=== PATIENT | female | born 1970 | race African-American/Black ===

== ENCOUNTER 2022-08-09 22:03 | Emergency (ER) | payer OTHER ==
[~2022-08-09] VITALS: Ht 180.3 cm; Wt 84.4 kg
[~2022-08-09 22:03] MED LIST: CORTISPORIN EAR10 M2 OT; ZANTAC150 MG PO
== END 2022-08-10 00:17 | disposition home or self-care (01) ==
LOC: EMR PED 22:03 → ER 22:08
DX: M94.0 Chondrocostal junction syndrome [Tietze] (principal); R53.1 Weakness; Z20.822 Contact with and (suspected) exposure to COVID-19

== ENCOUNTER → 2022-09-07 | Outpatient (CLI) | payer OTHER | END | disposition home or self-care (01) | LOC: MAMO-SONO 10:57 | PROVIDERS: ATTEND Surgery | DX: C50.412 Malignant neoplasm of upper-outer quadrant of left female breast (principal); N60.11 Diffuse cystic mastopathy of right breast; N60.12 Diffuse cystic mastopathy of left breast ==

== ENCOUNTER → 2022-10-12 07:14 | Outpatient (CLI) | payer OTHER | END | disposition home or self-care (01) | LOC: LAB 07:14 | PROVIDERS: ATTEND Surgery | DX: D64.9 Anemia, unspecified (principal); I10 Essential (primary) hypertension; D68.9 Coagulation defect, unspecified; N39.0 Urinary tract infection, site not specified; E11.8 Type 2 diabetes mellitus with unspecified complications; E04.1 Nontoxic single thyroid nodule; E78.2 Mixed hyperlipidemia ==

== ENCOUNTER 2022-10-19 06:48 | Day surgery (SDC) | payer OTHER ==
[~2022-10-19] VITALS: Ht 180.3 cm; Wt 88.0 kg
== END 2022-10-19 20:40 | disposition home or self-care (01) ==
LOC: CIR.AMB 06:48
PROVIDERS: ATTEND Surgery
DX: C50.212 Malignant neoplasm of upper-inner quadrant of left female breast (principal); N62 Hypertrophy of breast; N64.81 Ptosis of breast; N64.89 Other specified disorders of breast; Z20.822 Contact with and (suspected) exposure to COVID-19; Z88.2 Allergy status to sulfonamides; Z88.1 Allergy status to other antibiotic agents

== ENCOUNTER 2022-12-02 10:16 | Emergency (ER) | payer OTHER ==
[~2022-12-02] VITALS: Ht 180.3 cm; Wt 81.6 kg
== END 2022-12-02 13:31 | disposition home or self-care (01) ==
LOC: ER 10:16
DX: N61.0 Mastitis without abscess (principal); Z20.822 Contact with and (suspected) exposure to COVID-19; I10 Essential (primary) hypertension; Z88.2 Allergy status to sulfonamides; Z87.898 Personal history of other specified conditions

== ENCOUNTER 2024-01-13 08:29 | Emergency (ER) | payer OTHER ==
[~2024-01-13] VITALS: Ht 180.3 cm; Wt 81.6 kg
[2024-01-13] MEDS ORDERED: [UNRECOGNIZED DRUG - OTHER] (08:38)
[2024-01-13] MEDS ORDERED: FAMOTIDINE/PF 20 MG in 0.9 % SODIUM CHLORIDE 8 ML IV PUSH STA (08:59)
[2024-01-13] MEDS ORDERED: 0.9 % SODIUM CHLORIDE 1,000 ML IV SCH (09:00)
[2024-01-13] MEDS ORDERED: ONDANSETRON HCL 2 MG/ML VIAL IV ONE (09:00)
[2024-01-13] MEDS ORDERED: ONDANSETRON HCL 2 MG/ML VIAL ONE (09:04)
[2024-01-13] MEDS ORDERED: FAMOtidine 200mg/20ml VIAL ONE (09:04)
[2024-01-13] MEDS ORDERED: KETOROLAC TROMETHAMINE 30 MG VIAL ONE (09:04)
[2024-01-13] MEDS ORDERED: TAMOXIFEN CITRA10 MG (09:13)
[2024-01-13] MEDS ORDERED: KETOROLAC TROMETHAMINE 30 MG VIAL IV ONE (09:15)
[2024-01-13 09:36] LABS: HEMATOCRIT 39.6 % (36.0-45.00); HEMOGLOBIN 13.1 g/dL (12.0-15.00); MEAN CELL VOLUME 83.4 fL (80.00-100.00); MEAN CORPUSCULAR HEMOGLOBIN 27.5 pg (27.00-32.0); PLATELET COUNT 219 K/uL (150-450); RED BLOOD COUNT 4.74 M/uL (4.00-6.00); RED CELL DISTRIBUTION WIDTH 12.5 % (11.5-14.5)
[2024-01-13 10:11] LABS: ALBUMIN 3.6 gm/dL (3.4-5.0); BILIRUBIN TOTAL 0.65 mg/dL (0.3-1.2); CALCIUM 8.6 mg/dL (8.5-10.1); CREATININE SERUM 0.8 mg/dL (0.55-1.02); GFR 74.47; GLOBULINA 4.7 G/DL (2.4-3.5); POTASSIUM 3.88 mEq/L (3.5-5.1); TOTAL PROTEIN 8.3 gm/dL (6.4-8.2)
[2024-01-13] MEDS ORDERED: METOCLOPRAMIDE HCL 10 MG in DEXTROSE 5 % IN WATER 50 ML IV ONE (12:30)
[2024-01-13] MEDS ORDERED: METOCLOPRAMIDE HCL 5 MG/ML VIAL ONE (12:38)
[2024-01-13] MEDS ORDERED: DIPHENOXYLATE HCL/ATROPINE 1 UDTAB TABLET PO ONE (13:30)
[2024-01-13] MEDS ORDERED: PEPCID AC20 MG PO (14:37)
[2024-01-13] MEDS ORDERED: ONDANSETRON ODT8 MG PO (14:37)
[2024-01-13] MEDS ORDERED: INTESTINEX680 M1 PO (14:37)
[2024-01-13] MEDS ORDERED: LEVSIN/SL0.125 MG SL (14:39)
== END 2024-01-13 14:58 | disposition home or self-care (01) ==
LOC: ER 08:30
PROVIDERS: General Practice
DX: K52.9 Noninfective gastroenteritis and colitis, unspecified (principal); I88.0 Nonspecific mesenteric lymphadenitis; Z88.2 Allergy status to sulfonamides; Z85.3 Personal history of malignant neoplasm of breast; Z20.822 Contact with and (suspected) exposure to COVID-19

== ENCOUNTER 2025-04-13 06:15 | Emergency (ER) | payer OTHER ==
[~2025-04-13] VITALS: Ht 180.3 cm; Wt 83.5 kg
[~2025-04-13 06:15] MED LIST changes: +INTESTINEX680 M1 PO; +LEVSIN/SL0.125 MG SL; +ONDANSETRON ODT8 MG PO; +PEPCID AC20 MG PO; +TAMOXIFEN CITRA10 MG; +[UNRECOGNIZED DRUG - OTHER]
[2025-04-13 06:34] VITALS: BP 141/70; O2SAT 98
[2025-04-13] MEDS ORDERED: DEXAMETHASONE SODIUM PHOSPHATE 4 MG/ML VIAL IM STA (07:16)
[2025-04-13] MEDS ORDERED: ACETAMINOPHEN 500 MG GEL..CAP PO STA (07:17)
[2025-04-13] MEDS ORDERED: ACETAMINOPHEN 500 MG GEL..CAP PO ONE (07:21)
[2025-04-13] MEDS ORDERED: DEXAMETHASONE SODIUM PHOSPHATE 4 MG/ML VIAL ONE (07:22)
[2025-04-13 08:06] LABS: BASO % 0.6 % (0.1-1.2); EOS # 0.46 (0.04-0.54); EOS % 8.6 % (0.7-7.0); LYMPH # 1.55 (1.18-3.74); LYMPH % 29.0 % (19.3-53.1); MEAN PLATELET VOLUME 8.80 fl (9.4-12.4); MONO # 0.33 (0.24-0.82); MONO % 6.2 % (4.7-12.5); NEUT # 2.97 (1.56-6.13); NEUT % 55.4 % (34.0-71.1); RED CELL DISTRIBUTION WIDTH 11.8 % (11.6-14.4)
[2025-04-13 08:13] LABS: BUN CREA RATIO 16.0 (7.0-25.0); CREATININE SERUM 0.87 mg/dL (0.55-1.02); GFR 67.35; GLUCOSE FASTING 97.0 mg/dL (65-100); OSMOLALITY SERUM 282.0 MOSM/KG (275-295)
[2025-04-13 08:46] LABS: INR 0.98
[2025-04-13] MEDS ORDERED: NAPROXEN500 MG PO (09:08)
[2025-04-13] MEDS ORDERED: NORFLEX100MG PO (09:08)
== END 2025-04-13 09:13 | disposition home or self-care (01) ==
LOC: ER 06:15
PROVIDERS: General Practice
DX: M62.838 Other muscle spasm (principal); R51.9 Headache, unspecified; Z88.2 Allergy status to sulfonamides; Z85.3 Personal history of malignant neoplasm of breast; Z87.09 Personal history of other diseases of the respiratory system